=== PATIENT | female | born 1935 | race Asian ===

== ENCOUNTER → 2017-03-30 | Outpatient (CLI) | payer OTHER, MEDICAID ==
[~2017-03-30] MED LIST: ALLO100T PO; AMLO5TAB66 PO; ASPI-1093 PO; ATOR10TA84 PO; FERR-89 PO; FURO20 PO; GLIP5TAB11 PO; HYDR-4174 PO; METO50 PO; MONT10TA21 PO; VALS80TA2 GT
== END | disposition home or self-care (01) ==
LOC: RADPV 14:42
PROVIDERS: ATTEND Orthopaedic Surgery
DX: M17.12 Unilateral primary osteoarthritis, left knee (principal); I70.202 Unspecified atherosclerosis of native arteries of extremities, left leg